=== PATIENT | female | born 1995 | race Caucasian/White ===

== ENCOUNTER 2017-02-07 20:06 | Emergency (ER) | payer OTHER ==
[~2017-02-07] VITALS: Ht 167.6 cm; Wt 60.0 kg
[2017-02-07 20:08] VITALS: Ht 167.6 cm; Wt 60.0 kg
[2017-02-07] MEDS ORDERED: AMO500 PO (21:23)
[2017-02-07] MEDS ORDERED: IBUP-1542 PO (21:23)
--- NOTE | 2017-02-07 22:18 | ERD ---
ER Documentation Chief Complaint Date/Time DATE: 02/07/17 TIME: 22:[address] for a week HPI 21-year-old female presents here in emergency department for complaint of sore throat for 1 week, discussed the pain as throbbing pain, 6/10 scale, is worse upon swallowing. Patient had a fever 2 days ago. Patient denies any sick contacts. Patient denies any short shortness of breath or wheezing. Patient denies any stridor. Patient took ibuprofen for pain. ROS All systems reviewed and are negative except as per history of present illness. Medications Home Meds Active Scripts Ibuprofen* (Motrin*) 600 Mg Tab, 600 MG PO Q6H Y for PAIN AND OR ELEVATED TEMP, #30 TAB Prov:FABIÁN VELAZCO PATIENT CARE 02/07/17 Amoxicillin* (Amoxicillin*) 500 Mg Cap, 500 MG PO TID for 10 Days, CAP Prov:FABIÁN VELAZCO PATIENT CARE 02/07/17 Reported Medications [None] No Conflict Check 06/26/10 Allergies Allergies: Coded Allergies: No Known Drug Allergies (Verified Allergy, Mild, 06/26/10) PMhx/Soc Medical and Surgical Hx: pt denies Medical Hx, pt denies Surgical Hx History of Surgery: No Anesthesia Reaction: No Hx Neurological Disorder: No Hx Respiratory Disorders: No Hx Cardiac Disorders: No Hx Psychiatric Problems: No Hx Miscellaneous Medical Probl: No Hx Alcohol Use: No Hx Substance Use: Yes (marijuana monthly) Hx Tobacco Use: No Smoking Status: Never smoker FmHx Family History: No coronary disease, No diabetes, No other Physical Exam Vitals Vital Signs Date Time Temp Pulse Resp B/P Pulse Ox O2 Delivery O2 Flow Rate FiO2 02/07/17 20:08 97.6 77 18 108/65 100 Physical Exam GENERAL: The patient is well developed and appropriate for usual state of health, in no apparent distress. HEENT: Atraumatic. Ears: Normal tympanic membrane, no erythema or bulging. No ear canal swelling. No ear discharge. Nose: normal nasal turbinates, no erythema or swelling. Normal nasal discharge. Throat: oropharynx are edematous with +1 tonsillar swelling bilateral, no tonsillar exudates noted. No lymphadenopathy. CHEST: Clear to auscultation bilaterally. There are no rales, wheezes or rhonchi. HEART: Regular rate and rhythm. No murmurs, clicks, rubs or gallops. No S3 or S4. ABDOMEN: Soft, nontender and nondistended. Good bowel sounds. No rebound or guarding. No gross peritonitis. No gross organomegaly or masses. No Robbins sign or McBurney point tenderness. BACK: No midline or flank tenderness. EXTREMITIES: Equal pulses bilaterally. There is no peripheral clubbing, cyanosis or edema. No focal swelling or erythema. Full range of motion. Grossly neurovascularly intact. NEURO: Alert and oriented. Cranial nerves 2-12 intact. Motor strength in all 4 extremities with 5/5 strength. Sensation grossly intact. Normal speech and gait. SKIN: There is no apparent rash or petechia. The skin is warm and dry. HEMATOLOGIC AND LYMPHATIC: There is no evidence of excessive bruising or lymphedema. No gross cervical, axillary, or inguinal lymphadenopathy. Procedures/MDM Medical decision making: Patient symptoms is likely consistent with acute bacterial pharyngitis, most likely strep throat. Low suspicion for peritonsillar abscess, mononucleosis, no symptoms of epiglottitis, laryngitis. No oral airway obstruction noted. No symptoms of sepsis at this time. Patient appears well and is hemodynamically stable. Patient was given for amoxicillin, ibuprofen, , is advised to follow-up with primary care doctor in 2-3 days for reevaluation of symptoms. Patient is advised to do salt water gargles. Patient is advised to return to emergency department for worsening symptoms. Disposition: Home. Stable. Departure Diagnosis: Primary Impression: Acute bacterial pharyngitis Condition: Stable Patient Instructions: Pharyngitis, Strep (Presumed) FABIÁN VELAZCO NP Feb 07, 2017 22:18
== END 2017-02-07 21:34 | disposition home or self-care (01) ==
LOC: FTE 20:06
DX: J02.9 Acute pharyngitis, unspecified (principal)
CPT/HCPCS: 99283